=== PATIENT | male | born 1960 | race Hispanic/Latino ===

== ENCOUNTER → 2018-01-24 | Outpatient (CLI) | payer MEDICARE | END | disposition home or self-care (01) | LOC: SHCH 08:50 | PROVIDERS: ATTEND Internal Medicine Cardiovascular Disease | DX: I87.2 Venous insufficiency (chronic) (peripheral) (principal) | CPT/HCPCS: 93970 ==

== ENCOUNTER → 2018-03-06 | Outpatient (CLI) | payer MEDICARE | END | disposition home or self-care (01) | LOC: SHCH 10:14 | PROVIDERS: ATTEND Internal Medicine Cardiovascular Disease | DX: Z09 Encounter for follow-up examination after completed treatment for conditions other than malignant neoplasm (principal) | CPT/HCPCS: 93971 ==

== ENCOUNTER → 2019-01-08 | Outpatient (CLI) | payer MEDICARE | END | disposition home or self-care (01) | LOC: SHCH 12:59 | PROVIDERS: ATTEND Internal Medicine Cardiovascular Disease | DX: I65.23 Occlusion and stenosis of bilateral carotid arteries (principal) | CPT/HCPCS: 93880 ==

== ENCOUNTER → 2023-04-19 | Outpatient (CLI) | payer OTHER | END | disposition home or self-care (01) | LOC: RAH 12:47 | PROVIDERS: ATTEND Internal Medicine Cardiovascular Disease | DX: Z13.6 Encounter for screening for cardiovascular disorders (principal); I10 Essential (primary) hypertension | CPT/HCPCS: 75571 ==

== ENCOUNTER → 2023-05-18 | Outpatient (CLI) | payer MEDICARE ==
[~2023-05-18] MED LIST: REGADENOSON 0.4 MG/5 ML PF SYG IVP ONE
== END | disposition home or self-care (01) ==
LOC: SHCH 08:26
PROVIDERS: ATTEND Internal Medicine Cardiovascular Disease
DX: I21.19 ST elevation (STEMI) myocardial infarction involving other coronary artery of inferior wall (principal); I25.9 Chronic ischemic heart disease, unspecified; I10 Essential (primary) hypertension; E78.5 Hyperlipidemia, unspecified; I87.2 Venous insufficiency (chronic) (peripheral); R93.1 Abnormal findings on diagnostic imaging of heart and coronary circulation; Z87.891 Personal history of nicotine dependence; Z79.899 Other long term (current) drug therapy
CPT/HCPCS: 78452; 96374; 93017; J2785; A9500 ×2

== ENCOUNTER → 2023-10-10 | Outpatient (CLI) | payer MEDICARE | END | disposition home or self-care (01) | LOC: SHCH 11:24 | PROVIDERS: ATTEND Internal Medicine Cardiovascular Disease | DX: G45.9 Transient cerebral ischemic attack, unspecified (principal) | CPT/HCPCS: 93880 ==

== ENCOUNTER → 2024-02-07 | Outpatient (CLI) | payer MEDICARE ==
[2024-02-07 12:36] LABS: CHOLESTEROL 113 mg/dL (<200); HDL CHOLESTEROL 57 mg/dL (29-71); LDL DIRECT 47 mg/dL (0-99); TRIGLYCERIDES 111 mg/dL (30-200)
== END | disposition home or self-care (01) ==
LOC: LAB 08:04
PROVIDERS: ATTEND Internal Medicine Cardiovascular Disease
DX: E78.5 Hyperlipidemia, unspecified (principal)
CPT/HCPCS: 36415; 80061

== ENCOUNTER → 2024-08-22 | Outpatient (CLI) | payer MEDICARE | END | disposition home or self-care (01) | LOC: SHCH 10:04 | PROVIDERS: ATTEND Internal Medicine Cardiovascular Disease | DX: I73.9 Peripheral vascular disease, unspecified (principal) | CPT/HCPCS: 93925 ==

== ENCOUNTER → 2024-09-23 | Outpatient (CLI) | payer MEDICARE ==
[~2024-09-23] MED LIST changes: +GADOTERATE MEGLUMINE 10 MMOL/20 ML VIAL IV ONE; -REGADENOSON 0.4 MG/5 ML PF SYG IVP ONE
== END | disposition home or self-care (01) ==
LOC: RAH 10:54
PROVIDERS: ATTEND Internal Medicine Medical Oncology
DX: C64.1 Malignant neoplasm of right kidney, except renal pelvis (principal); K80.20 Calculus of gallbladder without cholecystitis without obstruction; R93.2 Abnormal findings on diagnostic imaging of liver and biliary tract; Z90.5 Acquired absence of kidney
CPT/HCPCS: 74183; A9575